=== PATIENT | female | born 1950 | race Caucasian/White ===

== ENCOUNTER 2020-05-08 17:13 | Emergency (ER) | payer OTHER ==
[2020-05-08 17:47] VITALS: BP 140/67; PULSE 84; TEMP 98.3; BMI 26.4
== END 2020-05-08 18:10 | disposition home or self-care (01) ==
LOC: JER 17:13
DX: U07.1 COVID-19 (principal)
CPT/HCPCS: 99283-25

== ENCOUNTER 2020-05-09 09:08 | Emergency (ER) | payer OTHER ==
[2020-05-09] MEDS ORDERED: BAMLANIVIMAB 700 MG in SODIUM CHLORIDE 180 ML IVPB ONE ×2 (09:33→11:49)
[2020-05-09 09:41] VITALS: BMI 26.4
[2020-05-09 10:06] LABS: HEMATOCRIT 38.6 % (32.4-45.2); HEMOGLOBIN 12.7 GM/dL (10.7-15.3); MCH 28.5 pg (25.7-33.7); MCHC 32.9 g/dl (32.0-36.0); MEAN CELL VOLUME 86.8 fl (80-96); MEAN PLT VOLUME 10.1 fl (7.5-11.1); PLATELET COUNT 141 K/MM3 (134-434); RBC 4.45 M/mm3 (3.60-5.2); RDW 13.7 % (11.6-15.6); WHITE BLOOD COUNT 6.4 K/mm3 (4.0-10.0)
[2020-05-09 10:30] LABS: CALCIUM 8.7 mg/dL (8.5-10.1)
[2020-05-09 10:31] LABS: BLOOD UREA NITROGEN 14.2 mg/dL (7-18)
[2020-05-09 10:34] LABS: CREATININE 0.7 mg/dL (0.55-1.3)
[2020-05-09 11:58] VITALS: TEMP 98.1
[2020-05-09 13:57] VITALS: BP 129/69; PULSE 67
== END 2020-05-09 13:59 | disposition home or self-care (01) ==
LOC: JER 09:08 → JCOVINFU 09:08
DX: U07.1 COVID-19 (principal)
CPT/HCPCS: 36415; 80048; 85027; 99284-25; C9803; M0239; Q0239; U0003